=== PATIENT | male | born 1965 | race Two or more races ===

== ENCOUNTER 2017-01-28 08:11 | Emergency (ER) | payer MEDICAID, OTHER ==
[~2017-01-28] VITALS: Ht 177.8 cm; Wt 101.6 kg
[2017-01-28 09:30] VITALS: BP 135/90
== END 2017-01-28 10:39 | disposition home or self-care (01) ==
LOC: ER 08:11
DX: M72.2 Plantar fascial fibromatosis (principal)

== ENCOUNTER 2017-02-02 12:28 | Emergency (ER) | payer OTHER ==
[~2017-02-02] VITALS: Ht 177.8 cm; Wt 101.6 kg
[2017-02-02 14:17] VITALS: BP 148/99
== END 2017-02-02 14:28 | disposition home or self-care (01) ==
LOC: ER 12:28
DX: L20.9 Atopic dermatitis, unspecified (principal)

== ENCOUNTER 2017-03-13 08:09 | Emergency (ER) | payer OTHER ==
[~2017-03-13] VITALS: Ht 177.8 cm; Wt 99.8 kg
[2017-03-13] MEDS ORDERED: IPRATROPIUM BROM 0.5 MG/2.5ML INH SOL NEB ONE (11:15)
[2017-03-13] MEDS ORDERED: cefTRIAXone SOD 1,000 MG VL IM ONE (11:15)
[2017-03-13] MEDS ORDERED: ALBUTEROL SULF 2.5 MG/0.5ML(0.5%) NEB SOLN NEB ONE (11:15)
[2017-03-13 11:27] VITALS: BP 150/96
== END 2017-03-13 12:03 | disposition home or self-care (01) ==
LOC: ER 08:09
DX: J20.9 Acute bronchitis, unspecified (principal); J03.90 Acute tonsillitis, unspecified
CPT/HCPCS: 94640; 96372; 99283; J0696

== ENCOUNTER 2017-04-26 19:06 | Emergency (ER) | payer OTHER ==
[~2017-04-26] VITALS: Ht 177.8 cm; Wt 101.6 kg
[2017-04-26] MEDS: SODIUM CHLORIDE 0.9% 1,000 ML IV ONE (19:15)
[2017-04-26] MEDS: IOHEXOL 300 MG/ML 100ML BOTTLE IJ ONE (19:17)
[2017-04-26 19:49] LABS: Basophils # (auto) 0.1 uL; Basophils % (auto) 0.9 % (0.0-2.0); Eosinophils # (auto) 0.1 uL; Eosinophils % (auto) 1.3 % (0.0-7.0); Hematocrit 46.1 % (41.0-53.0); Hemoglobin 15.9 g/dL (13.5-17.5); Lymphocytes # (auto) 1.9 uL; Lymphocytes % (auto) 19.6 % (10.0-50.0); Mean Corpuscular Hemoglobin 32.1 pg (28.0-32.0); Mean Corpuscular Hgb Conc. 34.4 g/dL (32.0-36.0); Mean Corpuscular Volume 93.1 fL (80.0-100.0); Mean Platelet Volume 10.4 fL (6.9-10.8); Monocytes # (auto) 0.9 uL; Neutrophils # (auto) 6.8 uL; Neutrophils % (auto) 69.2 % (37.0-80.0); Platelet Count (auto) 206 10^3/uL (140-450); White Blood Cell 9.8 10^3/uL (4.4-10.8)
[2017-04-26 20:00] LABS: INR 0.94 (0.9-1.15); Partial Thromboplastin Time 23.7 sec (22.64-33.71); Prothrombin Time 10.2 sec (9.37-12.3)
[2017-04-26] MEDS: MORPHINE SULFATE 4 MG/ML SYRG IV ONE (20:01)
[2017-04-26] MEDS: ONDANSETRON HCL 4 MG/2 ML VIAL IV ONE (20:01)
[2017-04-26 20:05] LABS: BUN/Creatinine Ratio 15.5; Bilirubin, Total 0.4 mg/dL (0.2-1.0); Calcium 8.6 mg/dL (8.5-10.1); Potassium 3.9 mmol/L (3.5-5.1)
[2017-04-26] MEDS: ceFAZolin 1GM/50ML 100 ML IV ONE (20:45)
[2017-04-26] MEDS: LIDOCAINE 2%HCL (LOCAL ANESTH.) INJ 20ML MDV ONE (21:01)
[2017-04-26] MEDS: LIDOCAINE W/ EPINEPHRINE 2% INJ 20ML VIAL ONE (21:10)
[2017-04-26] MEDS: TETANUS-DIPTH-ACEL PERTUSSIS 0.5ML SYRG IM ONE (21:36)
[2017-04-27 01:25] VITALS: BP 148/63
== END 2017-04-27 01:39 | disposition short-term general hospital (02) ==
LOC: ER 19:06
DX: S31.119A Laceration without foreign body of abdominal wall, unspecified quadrant without penetration into peritoneal cavity, initial encounter (principal); S21.112A Laceration without foreign body of left front wall of thorax without penetration into thoracic cavity, initial encounter; Z23 Encounter for immunization; W26.8XXA Contact with other sharp object(s), not elsewhere classified, initial encounter; Y93.89 Activity, other specified; Y92.89 Other specified places as the place of occurrence of the external cause; Y99.8 Other external cause status
CPT/HCPCS: 20102; 36415; 71010; 74177; 80053; 85025; 85610; 85730; 86850; 86900; 86901; 90471; 90715; 93005; 96361; 96365; 96366; 96375; 99291; J0690; J2270; J2405; Q9967